=== PATIENT | female | born 1955 ===

== ENCOUNTER 2020-03-15 13:22 | Outpatient (CLI) | payer MEDICARE ==
[~2020-03-15] VITALS: Ht 175.3 cm; Wt 86.2 kg
[2020-03-15 14:23] VITALS: BP 107/61
[2020-03-15] MEDS ORDERED: RESTORIL7.5 MG ORAL (15:31)
[2020-03-15] MEDS ORDERED: DOCUSATE SODIU100 MG ORAL (15:31)
[2020-03-15] MEDS ORDERED: LOPERAMIDE2 MG PO (15:31)
[2020-03-15] MEDS ORDERED: NORCO 5-325 TA1 EAC1 ORAL (15:31)
[2020-03-15] MEDS ORDERED: GERI-TUSSIN DM473 M1 PO (15:31)
[2020-03-15] MEDS ORDERED: PROAIR HFA8.5 GM INH (15:31)
[2020-03-15] MEDS ORDERED: PSEUDOEPHEDRINE60 MG PO (15:31)
[2020-03-15] MEDS ORDERED: METOPROLOL TART50 M1 ORAL (15:31)
[2020-03-15] MEDS ORDERED: ACETAMINOPHEN325 M1 ORAL (15:31)
[2020-03-15] MEDS ORDERED: PRO-STAT LIQUID30 ML ORAL (15:31)
[2020-03-15] MEDS ORDERED: ZOFRAN4 M3 ORAL (15:31)
[2020-03-15] MEDS ORDERED: HUMALOG100 UNIT/4 SUBQ (15:31)
[2020-03-15] MEDS ORDERED: LANTUS SOL100 UNIT/1 SUBQ (15:31)
[2020-03-15] MEDS ORDERED: KLONOPIN1 MG ORAL (15:31)
--- NOTE | 2020-03-15 19:45 | Consultation ---
DATE OF CONSULTATION: 03/15/2020 CONSULTING PHYSICIAN: Negro Benson MD. CHIEF COMPLAINT: Referral for G-tube removal. HISTORY OF PRESENT ILLNESS: This is a very pleasant 65-year-old female, who had a G-tube placement over a month ago at [facility] [place]. She is not exactly sure why she had it. At this time, she is eating fully and she was admitted. PAST MEDICAL HISTORY: 1. Diabetes. 2. Hypertension. 3. Encephalopathy. 4. Anxiety. 5. . PAST SURGICAL HISTORY: 1. History of . 2. Ovarian cyst removal. MEDICATIONS: Please see medication reconciliation list. FAMILY HISTORY: No family history of GI malignancies. SOCIAL HISTORY: The patient had history of tobacco usage. Denies any alcohol or drug abuse. ALLERGIES: No known allergies. REVIEW OF SYSTEMS: Positive for around the incision site. PHYSICAL EXAMINATION: VITAL SIGNS: Temperature 97.6, blood pressure 107/61, pulse 70, respirations 20. HEENT: Normocephalic and atraumatic. Sclerae are anicteric. NECK: Supple. No evidence of obvious lymphadenopathy. CARDIOVASCULAR: Regular rate and rhythm. Plus S1-S2. LUNGS: Clear to auscultation bilaterally. ABDOMEN: Positive bowel sounds. Soft and nontender. No rebound. No guarding. No peritoneal sign. EXTREMITIES: No cyanosis, no clubbing, no edema. ASSESSMENT AND PLAN: A 65-year-old patient with dysphagia, required G-tube in the past. At this time, she does not need it anymore. G-tube was removed at the bedside. The patient was instructed not to have a shower for 24 hours. The patient also has evidence of hemoglobin of 10, so she is anemic. According to her, last colonoscopy was 10 years ago. She was offered to have endoscopy and colonoscopy for evaluation of anemia and screening, but at this time she said she is not ready, she will call back and come back later. Negro Benson M.D. DR: MARTITA JOB#: [id number] CC:
== END 2020-03-15 15:22 | disposition home or self-care (01) ==
LOC: PAN 13:22
DX: Z43.1 Encounter for attention to gastrostomy (principal); E11.9 Type 2 diabetes mellitus without complications; I10 Essential (primary) hypertension; F41.9 Anxiety disorder, unspecified; R13.10 Dysphagia, unspecified; D64.9 Anemia, unspecified
CPT/HCPCS: G0463